=== PATIENT | female | born 1945 | race Caucasian/White ===

== ENCOUNTER 2016-08-23 19:33 | Emergency (ER) | payer OTHER ==
[2016-08-23 20:18] LABS: MANUAL DIFF NEEDED? NO
[2016-08-23 20:22] LABS: BASO% 0.3 % (0.0-0.8); EOS# 0.16 X1000 (0.0-0.7); EOS% 2.6 % (0.0-10.0); HEMATOCRIT 39.4 % (37.0-47.0); HEMOGLOBIN 13.2 g/dL (12.0-16.0); IMM GRAN# 0.02 X1000 (0.0-0.04); IMM GRAN% 0.3 % (0.0-0.5); LYMPH# 1.65 X1000 (1.2-3.4); LYMPH% 27.1 % (20.5-51.1); MCH 30.1 PG (27-31); MCHC 33.5 g/dL (33-37); MONO# 0.49 X1000 (0.11-0.59); MONO% 8.1 % (1.7-9.3); MPV 9.7 FL (7.4-10.4); NEUT% 61.6 % (42.2-75.2); PLT 169 X1000 (130-400); RBC 4.38 XMIL (4.2-5.4)
[2016-08-23 20:51] LABS: AGAP 11; ALBUMIN 3.8 g/dL (3.5-5.0); ALKALINE PHOSPHATASE 92 U/L (32-104); BUN 14 mg/dL (8-22); CALCIUM 8.9 mg/dL (8.8-10.2); CHLORIDE 99 mmol/L (98-107); COSMO 280; GOT 19 U/L (10-30); GPT 17 U/L (10-36); POTASSIUM 3.9 mmol/L (3.5-5.1); SODIUM 139 mmol/L (136-145); TCO2 29 mmol/L (25-35); TOTAL BILIRUBIN 0.46 mg/dL (0.20-1.00); TOTAL PROTEIN 6.5 g/dL (6.3-8.3)
[2016-08-23] MEDS ORDERED: ALBUTEROL NEB INH ONE (21:26)
[2016-08-23] MEDS ORDERED: DUONEB (A & A) INH ONE (21:26)
[2016-08-23] MEDS ORDERED: CATAPRES PO ONE (21:27)
[2016-08-23] MEDS ORDERED: DOXYCYCLINE PO ONE (21:27)
[2016-08-23] MEDS ORDERED: PREDNISONE PO ONE (21:27)
--- NOTE | 2016-08-23 21:55 | PROVIDER DOCUMENTATION ---
HPI-Respiratory General - General Chief Complaint: Cold Symptoms Stated Complaint: N/V/D Time Seen by Provider: 08/23/16 20:41 Source: patient Allergies/Adverse Reactions: Patient Allergies Allergy/AdvReac Type Severity Reaction Status Date / Time cefaclor [From Ceclor] Allergy Mild ITCHING Verified 01/05/15 18:53 hydrocodone bitartrate * Allergy Mild RASH Verified 01/05/15 18:53 [From Lortab] morphine Allergy ITCHING Verified 01/05/15 18:53 Home Medications: Aspirin 325 mg PO DAILY 02/05/13 Furosemide [Lasix] 80 mg PO DAILY 02/05/13 Metoprolol [Lopressor] 50 mg PO DAILY 02/05/13 Alprazolam [Xanax] 0.25 mg PO HS PRN PRN 03/17/14 Clopidogrel Bisulfate [Plavix] 75 mg PO QAM 03/17/14 Potassium Chloride 20 meq PO DAILY 01/05/15 Sertraline HCl 100 mg PO DAILY 01/05/15 - History of Present Illness-Resp Nature of Presenting Problem: 71 year old F presents to the ED with a cc of a runny nose, sore throat, cough, congestion, wheezing, and shortness of breath with an onset of 4 days ago. PT states that she took Musonex and her heart began racing. During triage blood pressure was elevated. Severity in ED: reports: mild Onset/Duration: reports: 4 days ago Timing: reports: still present Exposure: reports: unknown cause Cough Quality/Degree: reports: moderate Episode Frequency: no prior episodes Current Respiratory Medication Therapy: Initiated see nurses note Associated Symptoms: reports: cough Review of Systems - Adult - REVIEW OF SYSTEMS - ADULT Constitutional: denies: chills, fever Eyes: reports: no symptoms reported Ears, Nose, Mouth & Throat: reports: sinus problem, throat pain. denies: ear pain Cardiovascular: reports: no symptoms reported Respiratory: reports: cough, shortness of breath, wheezing Gastrointestinal: denies: abdominal pain, nausea, vomiting Genitourinary: denies: dysuria, hematuria Musculoskeletal: denies: bone pain, muscle aches, muscle weakness Integumentary: reports: no symptoms reported Neurological: reports: no symptoms reported Psychiatric: reports: no symptoms reported Endocrine: reports: no symptoms reported Hematologic/Lymphatic: reports: no symptoms reported Allergic/Immunologic: reports: no symptoms reported All Other Systems: Reviewed and Negative Past History - Adult - PAST MEDICAL HISTORY-ADULT Review of Records: reports: Nursing Assessment Review, Medications Reviewed Major Childhood Illnesses: reports: denies history Cardiovascular: reports: HTN, NE Neurological: reports: CVA - PRIOR SURGERIES/PROCEDURES Surgical/Procedure History: reports: appendectomy, CABG, cholecystectomy, cardiac stent, BTL, , joint replacement (total knee replacement), other (D & C) - PRIOR HOSPITALIZATIONS Prior Hospitalizations: reports: for similar symptoms - IMMUNIZATION STATUS Childhood Immunizations: UTD Flu Vaccine: UTD - FAMILY HISTORY Family History: reviewed, not pertinent - SOCIAL HISTORY Smoking: cigarettes, less than 1 pack/day Provider spent 3-5 mins advising pt. on dangers of tobacco.: Discussed manners to quit use, and f/u contacts for add'l counseling. Substance Use: none/never Alcohol Use Frequency: never Physical Exam-General - PHYSICAL EXAM-ADULT Initial Vital Signs Reviewed: Yes - CONSTITUTIONAL General Appearance: appears well, alert, no apparent distress - RESPIRATORY Respiratory: chest non-tender, lungs clear, normal breath sounds - CARDIOVASCULAR Cardiovascular: normal peripheral pulses, regular rate, rhythm, no edema - GASTROINTESTINAL (ABDOMEN) Abdominal Exam: non tender, soft - MUSCULOSKELETAL Extremity: normal inspection - SKIN Integumentary: normal color, normal turgor, warm/dry - PSYCHIATRIC Psych/Mental Status: normal mood/affect, normal thought content, normal thought process, oriented x 3 Progress - PLAN OF CARE/RESULTS Progress/Plan/Lab Results: plan of care: imaging, labs, medications Orders Category Date Time Status CHEST-2 VIEWS [RAD] Stat Exams 08/23/16 19:42 Taken CBC WITH DIFF [HEME] Stat Lab 08/23/16 20:05 Completed CMP [COMPREHENSIVE METABOLIC PANEL] [CHEM] Stat Lab 08/23/16 20:05 Completed Albuterol 2.5MG/Ipratrop 0.5MG [Duoneb (A & A)] Med 08/23/16 21:26 Discontinued 3 ml INH NOW ONE Albuterol [Albuterol Neb] Med 08/23/16 21:26 Discontinued 5 mg INH NOW ONE Clonidine [Catapres] Med 08/23/16 21:27 Discontinued 0.2 mg PO NOW ONE Doxycycline Med 08/23/16 21:27 Discontinued 100 mg PO NOW ONE Prednisone Med 08/23/16 21:27 Discontinued 60 mg PO NOW ONE Aerosol Treatments Routine Oth 08/23/16 21:26 Completed Aerosol Treatments Stat Oth 08/23/16 21:26 Completed Laboratory Tests 08/23/16 08/23/16 20:05 20:05 WBC 6.08 RBC 4.38 Hgb 13.2 Hct 39.4 MCV 90.0 MCH 30.1 MCHC 33.5 RDW Std Deviation 13.0 Plt Count 169 MPV 9.7 Immature Gran % (Auto) 0.3 Neut % (Auto) 61.6 Lymph % (Auto) 27.1 [place] % (Auto) 8.1 Eos % (Auto) 2.6 Baso % (Auto) 0.3 Immature Gran # (Auto) 0.02 Neut # (Auto) 3.74 Lymph # (Auto) 1.65 [place] # (Auto) 0.49 Eos # (Auto) 0.16 Baso # (Auto) 0.02 Sodium 139 Potassium 3.9 Chloride 99 Carbon Dioxide 29 Anion Gap 11 BUN 14 Creatinine 0.9 Estimated GFR/1.73 m2 > 60 BUN/Creatinine Ratio 16 Glucose 135 H Calculated Osmolality 280 Calcium 8.9 Total Bilirubin 0.46 AST 19 ALT 17 Alkaline Phosphatase 92 Total Protein 6.5 Albumin 3.8 Globulin 2.7 Albumin/Globulin Ratio 1.4 Vital Signs - 24 hr 08/23/16 08/23/16 19:40 22:12 Temperature 98.3 F Pulse Rate 64 66 Respiratory 12 18 Rate Blood Pressure 228/77 O2 Sat by Pulse 96 Oximetry Pt given results and will be d/c home w/ rx to follow up with PCP. Pt verbally understood instructions. PT remained clinically stable throughout the course of the ED stay and will return if symptoms worsen. - REASSESSMENT Reassessment #1 Time Reassessed: 22:45 (Wheezing has resolved and blood pressure is back to normal. PT will be d/c home to follow up with PCP.) Status: improving Departure - Departure Time of Disposition Order: 22:52 DIAGNOSIS: COPD exacerbation Hypertension Qualifiers: Hypertension type: essential hypertension Qualified Code(s): I10 - Essential ( primary) hypertension Disposition: HOME 01 Certified Medical Emergency: Emergent Condition: Good Additional Instructions: Follow up with primary care doctor. Return to ED for any new or worsening symptoms. ED Follow Up Instructions: You have been treated by a care provider in the Emergency Department. These instructions are being provided to you so you can have an understanding of how to care for yourself upon discharge. Upon discharge from the Emergency Department, you are responsible for making arrangements for follow-up care by a physician of your choice. Take all prescribed medications as directed. Return to the Emergency Department immediately for any new or worsening symptoms. You may call the Physician Referral phone number at [phone] to obtain a list of Physicians who are taking new patients. Prescriptions: Albuterol Sulfate [Albuterol Sulfate Hfa] 2 gm IH Q4-6H PRN PRN #1 [id number] PRN Reason: Wheezing Doxycycline 100 mg PO BID #14 tablet Prednisone 20 mg PO BID #10 tablet Referrals: Nima Pickens MD [Primary Care Provider] - Attestation - Scribe Verification/Attestation Scribe:: Margot Parisi Acting as Scribe for:: Jj Edwards Scribe documention review:: This chart was documented by a scribe and accurately reflects the service the provider performed and the decisions made by the provider. Physician Attestation - Physician Attestation I, the provider, attest to the following statement:: Jj Edwards Physician documentation Attestation:: This documentation recorded by the scribe accurately reflects the service I personally performed and the decisions made by me.
[2016-08-24 00:13] VITALS: BP 156/88
--- NOTE | 2016-08-24 08:19 | Diag Imaging Result Document ---
PROCEDURE NAME: CHEST-2 VIEWS - 08/23/2016 TWO VIEWS OF THE CHEST: FINDINGS: There is cardiomegaly. There is a granuloma over the right lower lobe. Compared to the previous study of 04/13/2016, there has been no significant change. IMPRESSION: Stable chest.
== END 2016-08-24 00:13 | disposition home or self-care (01) ==
LOC: ED 19:33
DX: J44.1 Chronic obstructive pulmonary disease with (acute) exacerbation (principal); I10 Essential (primary) hypertension; R06.2 Wheezing; J02.9 Acute pharyngitis, unspecified; R05 Cough; R06.02 Shortness of breath; I25.2 Old myocardial infarction; Z86.73 Personal history of transient ischemic attack (TIA), and cerebral infarction without residual deficits; Z79.899 Other long term (current) drug therapy; R09.89 Other specified symptoms and signs involving the circulatory and respiratory systems; Z96.659 Presence of unspecified artificial knee joint; Z95.5 Presence of coronary angioplasty implant and graft; Z95.1 Presence of aortocoronary bypass graft; Z79.82 Long term (current) use of aspirin; Z79.02 Long term (current) use of antithrombotics/antiplatelets; F17.210 Nicotine dependence, cigarettes, uncomplicated; Z71.6 Tobacco abuse counseling
CPT/HCPCS: 36415; 71020; 80053; 85025; 94640; 99284; J7512

== ENCOUNTER 2018-10-11 17:50 | Inpatient (IN) ==
[2018-10-11] MEDS ORDERED: SODIUM CHLORIDE 0.9% INJ ONE (18:30)
[2018-10-11] MEDS ORDERED: PROTONIX IV ONE (18:30)
[2018-10-11] MEDS ORDERED: DUONEB (A & A) INH ONE (18:30)
--- NOTE | 2018-10-11 18:41 | PROVIDER DOCUMENTATION ---
HPI-Respiratory General - General Stated Complaint: sob Time Seen by Provider: 10/11/18 18:21 Source: patient, EMS Allergies/Adverse Reactions: Patient Allergies Allergy/AdvReac Type Severity Reaction Status Date / Time levofloxacin [From Levaquin] Allergy Intermediate HIVES Verified 11/01/17 19:41 cefaclor [From Ceclor] Allergy Mild ITCHING Verified 11/01/17 19:41 codeine Allergy Mild RASH Verified 11/01/17 19:41 hydrocodone bitartrate * Allergy Mild RASH Verified 11/01/17 19:41 [From Lortab] latex Allergy Mild RASH Verified 11/01/17 19:41 meperidine [From Demerol] Allergy Mild ITCHING Verified 11/01/17 19:41 morphine Allergy Mild ITCHING Verified 11/01/17 19:41 ceftriaxone [From Rocephin] Allergy ITCHING Verified 04/11/18 19:16 Home Medications: Home Medication List Medication Instructions Recorded Confirmed Last Taken Type Sertraline HCl 100 mg PO QAM 01/05/15 07/18/18 04/09/18 History Pantoprazole [Protonix] 40 mg PO QAM 05/30/17 10/12/18 04/09/18 History ATORVAstatin [Lipitor] 40 mg PO QHS 07/31/17 10/12/18 04/09/18 History Isosorbide Mononitrate [Isosorbide 30 mg PO QAM 07/31/17 10/12/18 04/09/18 History Mononitrate ER] Acetaminophen E.r. [Tylenol 650 mg PO Q8HR PRN 11/01/17 10/12/18 04/09/18 History Arthritis] Potassium Chloride 20 meq PO DAILY 11/01/17 10/12/18 04/09/18 History Nitroglycerin [Nitrostat] 0.4 mg SL DIRECTED PRN 30 Days 01/04/18 10/12/18 Rx #30 tab.subl Alprazolam [Xanax] 0.25 mg PO BID PRN #60 tab 04/15/18 10/12/18 Unknown Rx Albuterol Sulfate [Ventolin Hfa] 2 puff IH Q4-6H PRN PRN 07/18/18 10/12/18 Unknown History Clonidine HCl 0.1 mg PO Q8H PRN 07/18/18 10/12/18 Unknown History Fluticasone/Umeclidin/Vilanter 1 each IH DAILY 07/18/18 10/12/18 Unknown History [Trelegy Ellipta 100-62.5-25] Furosemide [Lasix] 40 mg PO BID 07/18/18 10/12/18 Unknown History Diltiazem C.d. [Cardizem Cd] 240 mg PO DAILY #90 cap 07/26/18 10/12/18 Unknown Rx Dronedarone [Multaq] 400 mg PO BID #60 tab 07/26/18 10/12/18 Unknown Rx Nitrofurantoin [place]/Macrocryst 100 mg PO BID #20 cap 07/26/18 10/12/18 Unknown Rx [Macrobid] - History of Present Illness-Resp Nature of Presenting Problem: reports of sob since last night. associated with cough. worsening at night. mild swelling of legs. +epigastric pain since she did not eat last night. history of chf, copd. reports taking medicine everyday. no fever chills, cp, dysuria. home O2 3L, now requires 4L per EMS which oxygen improving to 94%. gave alb treatment which also improving. Review of Systems - Adult - REVIEW OF SYSTEMS - ADULT Constitutional: reports: see HPI Eyes: reports: no symptoms reported Ears, Nose, Mouth & Throat: reports: no symptoms reported Cardiovascular: reports: no symptoms reported Respiratory: reports: no symptoms reported Gastrointestinal: reports: no symptoms reported Genitourinary: reports: no symptoms reported Musculoskeletal: reports: no symptoms reported Integumentary: reports: no symptoms reported Neurological: reports: no symptoms reported Psychiatric: reports: no symptoms reported Endocrine: reports: no symptoms reported Hematologic/Lymphatic: reports: no symptoms reported Allergic/Immunologic: reports: no symptoms reported All Other Systems: Reviewed and Negative Past History - Adult - PAST MEDICAL HISTORY-ADULT Review of Records: reports: Old Records Reviewed, Nursing Assessment Review, Medications Reviewed, Social history reviewed & non-contributory. Major Childhood Illnesses: reports: denies history Cardiovascular: reports: cardiac disease, CHF, HTN, hyperlipidemia, OR, other ( stent) Respiratory: reports: COPD, sleep apnea Gastrointestinal: reports: GERD Obstetrical/Gynecological: reports: denies history Genitourinary: reports: denies history Musculoskeletal: reports: denies history Neurological: reports: CVA Psychiatric: reports: denies history Endocrine/Immune: reports: denies history Other Conditions: reports: denies history - PRIOR SURGERIES/PROCEDURES Surgical/Procedure History: reports: appendectomy, CABG, cholecystectomy, cardiac stent, BTL, , joint replacement (total knee replacement), other (D & C) - PRIOR HOSPITALIZATIONS Prior Hospitalizations: reports: for similar symptoms - IMMUNIZATION STATUS Childhood Immunizations: UTD Flu Vaccine: UTD - FAMILY HISTORY Family History: reviewed, not pertinent Physical Exam-General - CONSTITUTIONAL General Appearance: moderate distress, obese - EYES Eyes: PERRL/EOMI - HEAD, EARS, NOSE, MOUTH & THROAT HENMT: normocephalic/atraumatic, other (dry oral mucous membranes) - NECK Neck: non-tender, full range of motion - RESPIRATORY Respiratory: respiratory distress (mild to mod), decreased breath sounds, wheezing - CARDIOVASCULAR Cardiovascular: normal peripheral pulses, other (edema b/l) - GASTROINTESTINAL (ABDOMEN) Abdominal Exam: normal bowel sounds, tenderness (epigastric) - MUSCULOSKELETAL Back Exam: normal inspection, no CVA tenderness, no vertebral tenderness Extremity: normal range of motion, non-tender Peripheral Pulses: radial (R): 2+, radial (L): 2+, dorsalis-pedis (R): 2+, dorsalis-pedis (L): 2+ - SKIN Integumentary: normal color, warm/dry - NEUROLOGIC Neurologic: grossly normal - PSYCHIATRIC Psych/Mental Status: oriented x 3 - HEART Score HEART Score: History: Slightly Suspicious HEART Score: ECG: Non-Specific Repolarization Disturbance/LBBB/PM HEART Score: Age: > or = 65 Years HEART Score: Risk Factors for Atherosclerotic Disease: 1 or 2 Risk Factors HEART Score: Troponin: < or = Normal Limit Total HEART Score:: 4 Progress - PLAN OF CARE/RESULTS Progress/Plan/Lab Results: Laboratory Results - last 24 hr 10/11/18 10/11/18 10/11/18 00:15 18:43 18:43 WBC 7.07 RBC 4.38 Hgb 12.6 Hct 39.3 MCV 89.7 MCH 28.8 MCHC 32.1 L RDW Std Deviation 13.9 Plt Count 155 MPV 10.3 Immature Gran % (Auto) 0.3 Neut % (Auto) 74.6 Lymph % (Auto) 16.4 L [place] % (Auto) 6.6 Eos % (Auto) 1.7 Baso % (Auto) 0.4 Immature Gran # (Auto) 0.02 Neut # (Auto) 5.27 Lymph # (Auto) 1.16 L [place] # (Auto) 0.47 Eos # (Auto) 0.12 Baso # (Auto) 0.03 PT INR PTT (Actin FS) Specimen Type Sample Site pH pCO2 pO2 HCO3 Base Excess Oxyhemoglobin ABG O2 Sat (Calculated) ABG O2 Saturation ABG Carboxyhemoglobin ABG Methemoglobin Davis Test A-a O2 Difference Total Hemoglobin Lactate Liter Flow Blood Gas Modality FiO2 % Sodium 141 Potassium 4.4 Chloride 100 Carbon Dioxide 30 Anion Gap 11 BUN 22 Creatinine 1.2 H Estimated GFR/1.73 m2 44 BUN/Creatinine Ratio 18 Glucose 175 H Calculated Osmolality 289 Calcium 9.4 Total Bilirubin 0.55 AST 18 ALT 15 Alkaline Phosphatase 111 H Creatine Kinase 128 Troponin T 0.055 Yvm-I-Vdplvpsyquf Pept Total Protein 6.8 Albumin 4.4 Globulin 2.4 Albumin/Globulin Ratio 1.8 10/11/18 10/11/18 10/11/18 18:43 18:43 18:43 WBC RBC Hgb Hct MCV MCH MCHC RDW Std Deviation Plt Count MPV Immature Gran % (Auto) Neut % (Auto) Lymph % (Auto) [place] % (Auto) Eos % (Auto) Baso % (Auto) Immature Gran # (Auto) Neut # (Auto) Lymph # (Auto) [place] # (Auto) Eos # (Auto) Baso # (Auto) PT 13.4 INR 0.94 PTT (Actin FS) 28.9 Specimen Type Sample Site pH pCO2 pO2 HCO3 Base Excess Oxyhemoglobin ABG O2 Sat (Calculated) ABG O2 Saturation ABG Carboxyhemoglobin ABG Methemoglobin Davis Test A-a O2 Difference Total Hemoglobin Lactate Liter Flow Blood Gas Modality FiO2 % Sodium Potassium Chloride Carbon Dioxide Anion Gap BUN Creatinine Estimated GFR/1.73 m2 BUN/Creatinine Ratio Glucose Calculated Osmolality Calcium Total Bilirubin AST ALT Alkaline Phosphatase Creatine Kinase Troponin T 0.055 [id number]-J-Rrnqmpjaxeu Pept 2937 H Total Protein Albumin Globulin Albumin/Globulin Ratio 10/11/18 19:23 WBC RBC Hgb Hct MCV MCH MCHC RDW Std Deviation Plt Count MPV Immature Gran % (Auto) Neut % (Auto) Lymph % (Auto) [place] % (Auto) Eos % (Auto) Baso % (Auto) Immature Gran # (Auto) Neut # (Auto) Lymph # (Auto) [place] # (Auto) Eos # (Auto) Baso # (Auto) PT INR PTT (Actin FS) Specimen Type ARTERIAL Sample Site R RADIAL pH 7.43 pCO2 47 H pO2 84 HCO3 29.5 H Base Excess 5.9 H Oxyhemoglobin 95.1 ABG O2 Sat (Calculated) 16.7 ABG O2 Saturation 97.5 ABG Carboxyhemoglobin 1.40 ABG Methemoglobin 1.1 Davis Test YES A-a O2 Difference 114.0 Total Hemoglobin 12.4 Lactate 1.10 Liter Flow 4.0 Blood Gas Modality CANNULA FiO2 % 36.0 Sodium Potassium Chloride Carbon Dioxide Anion Gap BUN Creatinine Estimated GFR/1.73 m2 BUN/Creatinine Ratio Glucose Calculated Osmolality Calcium Total Bilirubin AST ALT Alkaline Phosphatase Creatine Kinase Troponin T Gvi-R-Nhvtbstvtyq Pept Total Protein Albumin Globulin Albumin/Globulin Ratio Orders Category Date Time Status Admit - [facility] Routine AdmDCTranf 10/11/18 22:36 Active Activity - Up with Assistance ORDERED Care 10/11/18 22:36 Active Cardiac Monitoring DIRECTED Care 10/11/18 18:30 Completed FSBS/Accucheck Result AC + HS Care 10/11/18 22:36 Active Intake and Output-Strict ORDERED Care 10/11/18 22:36 Active Oxygen Therapy- ED Nursing DIRECTED Care 10/11/18 18:30 Completed Saline Loc NOW Care 10/11/18 18:30 Completed Vital Signs Order Q 8-HR ASSESS Care 10/11/18 22:36 Active Z-Document. for Tele Applied ORDERED Care 10/11/18 22:36 Active Diabetic Diet Diet 10/11/18 22:37 Active CHEST-2 VIEWS [RAD] Routine Exams 10/13/18 06:00 Ordered CHEST-2 VIEWS [RAD] Stat Exams 10/11/18 18:30 Completed ABG [RESP] Routine Lab 10/11/18 19:23 Completed BASIC METABOLIC PANEL [CHEM] Routine Lab 10/12/18 04:39 Completed CBC WITH DIFF [HEME] Routine Lab 10/12/18 04:39 Completed CBC WITH ELECTRONIC DIFF [HEME] Stat Lab 10/11/18 18:43 Completed CK PROFILE [SP CHEM] Stat Lab 10/11/18 18:43 Completed COMPREHENSIVE METABOLIC PANEL [CHEM] Stat Lab 10/11/18 18:43 Completed PRO B-NATRIURETIC PEPTIDE Stat Lab 10/11/18 18:43 Completed PROTIME WITH INR [COAG] Stat Lab 10/11/18 18:43 Completed PTT [COAG] Stat Lab 10/11/18 18:43 Completed TROPONIN T Q6H Lab 10/11/18 00:15 Completed TROPONIN T Q6H Lab 10/12/18 04:39 Completed TROPONIN T Stat Lab 10/11/18 18:43 Completed TSH Routine Lab 10/12/18 04:39 Completed Acetaminophen [Tylenol] Med 10/11/18 22:36 Active 650 mg PO Q6H PRN PRN Albuterol 2.5MG/Ipratrop 0.5MG [Duoneb (A & A)] Med 10/11/18 18:30 Discontinued 3 ml INH NOW ONE Albuterol 2.5MG/Ipratrop 0.5MG [Duoneb (A & A)] Med 10/12/18 04:00 Active 3 ml INH RTQ6H Arformoterol Neb [Brovana Neb] Med 10/12/18 07:30 Active 15 microgm INH RTBID Enoxaparin [Lovenox] Med 10/11/18 22:36 Active 40 mg SUBQ Q24H Furosemide [Lasix] Med 10/12/18 03:30 Active 40 mg IV Q8H Furosemide [Lasix] Med 10/11/18 19:40 Discontinued 80 mg IV NOW ONE Insulin Lispro [Humalog] Med 10/11/18 22:36 Active See Protocol SUBQ 0700,1100,1600,2100 Methylprednisolone Sod Succ [Solu-Medrol] Med 10/11/18 22:36 Active 20 mg IV Q12H Ondansetron [Zofran] Med 10/11/18 22:36 Active 4 mg IV Q4H PRN PRN Pantoprazole [Protonix] Med 10/11/18 18:30 Discontinued 40 mg IV NOW ONE Sodium Chloride 0.9% Med 10/11/18 18:30 Discontinued 10 ml INJ NOW ONE Aerosol Treatments Routine Oth 10/11/18 18:30 Completed Aerosol Treatments Routine Oth 10/11/18 22:36 Completed Aerosol Treatments Stat Oth 10/11/18 18:30 Completed Aerosol Treatments Stat Oth 10/11/18 22:36 Completed Telemetry [OM.EQ] Routine Oth 10/11/18 22:36 Active Transfer/Admit Order [TRANSFER] Routine Transfer 10/11/18 20:36 Completed [facility] [address], [address], [place] [address] Department of Imaging Patient: LALY MADISON ADM Date: 10/11/18 MR#: [id number] : 1945 ADM Status: PRE ER Age/Sex: 73/F Room/Bed: Loc: ED Ordering Physician: Vandana Arambula MD Family Physician: Nima Pickens MD Reason for Procedure: copd, chf ___ Signed EXAM: CHEST-2 VIEWS - 10/11/2018 HISTORY: copd, chf TECHNIQUE: Chest two views COMPARISON: 07/24/2018 one view chest FINDINGS: There is cardiomegaly. There is mild prominence of central vascular markings. There is no consolidation, pleural effusion, or pneumothorax identified. There is thoracic spondylosis and or ankylosis noted. IMPRESSION: Cardiomegaly. Mild prominence of central vascular markings. Electronically signed by Ector Valera 10/11/2018 7:27 PM 10/11/181926 Interpreting Physician: Ector Valera MD Dictated Date/Time: 10/11/181925 cc: Vandana Arambula MD; Nima Pickens MD Result Diagrams: 10/12/18 04:39 10/12/18 04:39 - CONSULTS/PCP/HOSPITALIST Notification #1 *Consult/PCP/Hospitalist*: dR. FLORES Time Discussed: 20:30 (ACUTE COPD, CHF, CONSTANTINE, STASIS DERMATITIS) Consult Disposition: Admit Departure - Departure Date of Disposition Decision: 10/11/18 Time of Disposition Decision: 20:50 DIAGNOSIS: COPD (chronic obstructive pulmonary disease), CHF (congestive heart failure), CONSTANTINE (acute kidney injury), Stasis dermatitis of both legs Disposition: ADMITTED INPATIENT 09 Certified Medical Emergency: Emergent Condition: Stable - Critical Care Note This patient required my direct & personal management of CC.: No Attestation - Physician/ SADIA Attestation The physician spent face to face time with patient:: Yes Advanced Practice Provider documentation review:: Supervising physician onsite and consulted in the evaluation and care of this patient. The physician did have a face to face encounter with the patient.
[2018-10-11 19:00] LABS: BASO# 0.03 X1000 (0.0-0.2); BASO% 0.4 % (0.0-0.8); EOS# 0.12 X1000 (0.0-0.7); EOS% 1.7 % (0.0-10.0); HEMATOCRIT 39.3 % (37.0-47.0); HEMOGLOBIN 12.6 g/dL (12.0-16.0); IMM GRAN# 0.02 X1000 (0.0-0.04); IMM GRAN% 0.3 % (0.0-0.5); LYMPH# 1.16 X1000 (1.2-3.4); LYMPH% 16.4 % (20.5-51.1); MCH 28.8 PG (27-31); MCHC 32.1 g/dL (33-37); MCV 89.7 FL (81-99); MONO# 0.47 X1000 (0.11-0.59); MONO% 6.6 % (1.7-9.3); MPV 10.3 FL (7.4-10.4); NEUT# 5.27 X1000 (1.4-6.5); NEUT% 74.6 % (42.2-75.2); PLT 155 X1000 (130-400); RBC 4.38 XMIL (4.2-5.4); RDW 13.9 % (11.5-14.5); WBC 7.07 X1000 (4.8-10.8)
[2018-10-11 19:06] LABS: INR 0.94; PROTIME 13.4 Seconds (11.0-16.0)
[2018-10-11 19:07] LABS: PTT 28.9 Seconds (22.3-41.8)
[2018-10-11 19:17] LABS: ALB/GLOB RATIO 1.8; ALBUMIN 4.4 g/dL (3.5-5.0); CALCIUM 9.4 mg/dL (8.8-10.2); CREATININE 1.2 mg/dL (0.5-0.9); POTASSIUM 4.4 mmol/L (3.5-5.1); TOTAL BILIRUBIN 0.55 mg/dL (0.20-1.00); TOTAL PROTEIN 6.8 g/dL (6.3-8.3)
--- NOTE | 2018-10-11 19:29 | Diag Imaging Result Doc PS360 ---
EXAM: CHEST-2 VIEWS - 10/11/2018 HISTORY: copd, chf TECHNIQUE: Chest two views COMPARISON: 07/24/2018 one view chest FINDINGS: There is cardiomegaly. There is mild prominence of central vascular markings. There is no consolidation, pleural effusion, or pneumothorax identified. There is thoracic spondylosis and or ankylosis noted. IMPRESSION: Cardiomegaly. Mild prominence of central vascular markings. Electronically signed by Ector Valera 10/11/2018 7:27 PM
[2018-10-11 19:32] LABS: ALLEN TEST YES; BE 5.9 mmoll (-3.0-3.0); BLOOD TYPE ARTERIAL; HCO3-(ACT) 29.5 mmoll (20.0-26.0); METHB 1.1 % (0.0-1.5); O2(CT) 16.7 mL/dL (15.0-23.0); O2HB 95.1 % (95.0-99.0); PCO2(98.6) 47 mmHg (35-45); PO2(98.6) 84 mmHg (60-100); SAMPLE BLOOD; SAO2 97.5 % (95.0-100.0); THB 12.4 g/dL (11.5-17.4); pH(98.6) 7.43 (7.35-7.45)
[2018-10-11 19:33] LABS: MODALITY CANNULA
[2018-10-11] MEDS ORDERED: LASIX IV ONE (19:40)
--- NOTE | 2018-10-11 21:33 | HISTORY AND PHYSICAL ---
REASON FOR ADMISSION: One week history of dyspnea. HISTORY OF PRESENT ILLNESS: Ms. Gala Coughlin is a 73-year-old lady with a past medical history of atrial flutter, coronary artery disease, type 2 diabetes, reflux disease, hyperlipidemia, hypertension and sleep apnea, morbid obesity. She comes in today complaining about a 3-week of productive yellowish cough which was stringy. This has been increasing in volume and frequency. One week later the patient started noticing increasing lower extremity swelling and easy satiety. Then one week later she started noticing increased dyspnea on exertion. Normally she can walk 100 feet with a walker and O2 but over the course of the last week her exercise has diminished to 25 feet. Over the last 2 days she has been having orthopnea and dyspnea at rest. She has been sleeping in her recliner for the last 2 days. Today things got really bad and she experienced an episode of PND. She admits to having chest heaviness which has been constant associated with left arm pain. Neither of these have responded to sublingual nitroglycerin. She denies any fever but has subjective chills. No palpitations or lightheadedness. No extremity redness or pain of new onset. No decline in her urinary output. No GI complaints. The patient's dyspnea is partially improved with 2 doses of albuterol. She has had to have her home O2 increased from 3 to 4 L to maintain her oxygen saturation greater than 90% since being in the ER. REVIEW OF SYSTEMS: A 12 point review of systems was done and positive findings per HPI. The patient did admit to having a dull frontal headache and her urine has changed and has become darker and has a peculiar odor to it. ALLERGIES: Quinolone, cephalosporins, hydrocodone, morphine, Demerol, codeine. FAMILY HISTORY: Notable for heart disease and COPD. SOCIAL HISTORY: She is . She does not smoke, drink or use drugs. She lives in a prison apartment. MEDICATIONS: Reconciled at this point in time. PAST SURGICAL HISTORY: Cholecystectomy, , right knee replacement, ORIF of femoral fracture, stent in LAD. LABORATORY DATA: White count 7000, hemoglobin 12 and hematocrit 39, platelets 155, no differential. BUN 22, creatinine 1.2, glucose 175. AST and ALT are normal. Alkaline phosphatase 411. Troponin 0.055, CK normal. Pro-BNP 2900, PT and PTT normal with pH of 7.43, PCO2 47, PO2 80 on 4 L. Chest film shows poor penetration but the patient appears to have increased vascular markings and blunting of the left costophrenic angle, borderline cardiomegaly. EKG not available for review at this point in time. PHYSICAL EXAMINATION: VITAL SIGNS: Respiratory 22, pulse 84, temperature 97.6. She is 94% on 4 L. GENERAL: A morbidly obese woman who is in mild to moderate respiratory distress, having slight difficulty completing sentences. She is a morbidly obese, elderly woman who is slightly anxious. She is alert and oriented to person, place and time. Normal mood and affect. HEENT: Head is normocephalic, atraumatic. Eyes: PERRL. EOMI. She is anicteric, not pale. ENT and oropharynx exam shows severe oropharyngeal crowding but no exudates or erythema. No sinus tenderness. NECK: Short and thick. I cannot appreciate any JVD. No bruits or thyromegaly visualized. CHEST: Poor inspiratory effort. Significantly decreased air entry in both lung gonzalez. Expiratory wheezes heard. CARDIOVASCULAR: First and second heart sounds are heard. No gallops or rubs. Rhythm is regular. ABDOMEN: Protuberant. Soft with right upper quadrant tenderness noted but no peritoneal signs. Bowel sounds are hypoactive. RECTAL: Exam deferred at this time. EXTREMITIES: Patient has chronic skin changes consistent with chronic venous insufficiency. She has 1+ pitting edema. Pulses distally in the lower extremities are diminished but symmetrical and regular compared to the ones in the upper extremities which have a carranza volume. NEUROLOGICAL: No focal deficits. No asterixis. No tremors. SKIN: Findings as per lower extremities. MUSCULOSKELETAL: Grossly normal. ASSESSMENT: 1. Acute on chronic respiratory failure secondary to chronic obstructive pulmonary disease exacerbation and acute diastolic heart failure. 2. Acute diastolic heart failure secondary to hypertensive heart disease. 3. Hypertensive heart disease. 4. Chronic obstructive pulmonary disease. 5. Obstructive sleep apnea. 6. Type 2 diabetes. 7. Coronary artery disease. 8. Hyperlipidemia. 9. Morbid obesity. PLAN: The patient will be admitted for aggressive diuresed, O2 supplementation, long and short- acting bronchodilators and modest doses of steroids. Defer to Dr. Pickens as per his preference as to whether he wants to consult Cardiology for this case. An echocardiogram would be recommended in this patient. The patient is not compliant with her diet and engages in drinking lots of sodas which can cause salt retention. I explained this to the patient. Her daughter says she is not really committed to changing her eating habits and the family concurs. DVT prophylaxis with Lovenox. Sliding scale will be initiated. If need be, based on her blood sugars, she can have long-acting insulin added on. Transfer the patient's care to Dr. Pickens in the morning. cc: MD Gregory Fan MD
[2018-10-11] MEDS ORDERED: TYLENOL PO PRN (22:36)
[2018-10-11] MEDS ORDERED: ZOFRAN IV PRN (22:36)
[2018-10-12] MEDS: SOLU-MEDROL IV SCH ×3 (00:09→22:52)
[2018-10-12] MEDS: LOVENOX SUBQ SCH ×2 (00:10→22:52)
[2018-10-12] MEDS: HUMALOG SUBQ SCH ×4 (00:10→17:30)
[2018-10-12] MEDS: DUONEB (A & A) INH SCH ×4 (03:45→20:30)
[2018-10-12] MEDS: LASIX IV SCH ×3 (04:23→20:15)
[2018-10-12 05:44] LABS: BASO# 0.02 X1000 (0.0-0.2); BASO% 0.3 % (0.0-0.8); EOS# 0.01 X1000 (0.0-0.7); EOS% 0.1 % (0.0-10.0); HEMATOCRIT 38.8 % (37.0-47.0); HEMOGLOBIN 12.5 g/dL (12.0-16.0); IMM GRAN# 0.03 X1000 (0.0-0.04); IMM GRAN% 0.4 % (0.0-0.5); LYMPH# 0.72 X1000 (1.2-3.4); LYMPH% 9.6 % (20.5-51.1); MCH 28.7 PG (27-31); MCHC 32.2 g/dL (33-37); MCV 89.2 FL (81-99); MONO# 0.15 X1000 (0.11-0.59); MPV 10.8 FL (7.4-10.4); NEUT# 6.58 X1000 (1.4-6.5); NEUT% 87.6 % (42.2-75.2); PLT 153 X1000 (130-400); RBC 4.35 XMIL (4.2-5.4); RDW 13.9 % (11.5-14.5); WBC 7.51 X1000 (4.8-10.8)
[2018-10-12 05:47] LABS: CALCIUM 9.5 mg/dL (8.8-10.2); CREATININE 1.2 mg/dL (0.5-0.9); POTASSIUM 4.2 mmol/L (3.5-5.1)
[2018-10-12] MEDS ORDERED: BROVANA NEB ONE (07:20)
[2018-10-12] MEDS: BROVANA NEB INH SCH ×2 (10:05→20:20)
[2018-10-12] MEDS: ULTRACET 37.5MG/325MG PO PRN ×2 (12:10→20:15)
[2018-10-12] MEDS ORDERED: APRESOLINE IV PRN (18:26)
--- NOTE | 2018-10-12 20:09 | PROGRESS NOTE ---
DATE: 10/12/2018 SUBJECT: 73-year-old white female admitted to the hospital basically with worsening of dyspnea last night. She is gaining weight. Swelling of face and legs. I did review the H and P on 10/11/2018. PAST MEDICAL HISTORY: Reviewed. PAST SURGICAL HISTORY: Reviewed. MEDICINES: Reviewed. ALLERGIES: Levaquin, codeine, hydrocodone. EXAMINATION: Temp is 98 degrees, pulse 94, blood pressure 193/88, 4 L nasal cannula 98%. 5 feet, 5 inches, 300 pounds. Patient is not using CPAP machine and generalized obesity. Poor air entry. Distant heart sounds. Belly is soft, obese, nontender. Chronic indurated edema in both legs and the scar is present in the right leg. No obvious deficits. INVESTIGATIONS: CBC: White cell count 7.48, hematocrit 38, platelets 153,000, PT/INR is normal. ABG: pH is 7.43, pCO2 47, PO2 84 on 36%. Sodium 140, potassium 4.2, chloride 98, BUN 21, creatinine 1.2, glucose 306, proBNP was slightly high. TSH is 4.34. Chest x-ray, cardiomegaly, mild prominence of pulmonary vasculature. ASSESSMENT AND PLAN: 1. Pickwickian syndrome with obesity hypoventilation. Continue CPAP. 2. Generalized anasarca. Continue IV Lasix. 3. PAF on Multaq 400 p.o. b.i.d. Currently in sinus. Unable to tolerate anticoagulation due to severe GI bleeding. 4. CAD with a stent in the LAD. 5. Acute decompensated diastolic heart failure due to hypertension. Continue control the blood pressure. 6. Stasis dermatitis in both legs. 7. Osteoarthritis of both knees. 8. Gastrointestinal bleeding due to diverticulosis on 07/18/2018. 9. Chronic L2 compression fracture, stable. 10. Acid reflux disease on IV Protonix. 11. Hyperlipidemia on Lipitor. 12. Chronic pain with Ultracet and reconcile home medications. Continue low-salt diet. Fluid restrictions. Continue monitor tech. LEVEL OF DOCUMENTATION: 35 minutes. cc: Gregory Pickens MD
[2018-10-12] MEDS: XANAX PO PRN (20:15)
[2018-10-12] MEDS: LIPITOR PO SCH (20:15)
[2018-10-12] MEDS: MULTAQ PO SCH (20:15)
[2018-10-12] MEDS: HUMULIN R SUBQ SCH (21:08)
[2018-10-12 22:18] LABS: ALLEN TEST YES; BE 8.9 mmoll (-3.0-3.0); BLOOD TYPE ARTERIAL; HCO3-(ACT) 31.8 mmoll (20.0-26.0); METHB 1.2 % (0.0-1.5); MODALITY CANNULA; O2(CT) 17.1 mL/dL (15.0-23.0); O2HB 95.3 % (95.0-99.0); PCO2(98.6) 48 mmHg (35-45); PO2(98.6) 79 mmHg (60-100); SAMPLE BLOOD; SAO2 97.7 % (95.0-100.0); THB 12.7 g/dL (11.5-17.4); pH(98.6) 7.46 (7.35-7.45)
[2018-10-12] MEDS ORDERED: XANAX PO ONE (22:44)
[2018-10-13] MEDS: LASIX IV SCH ×2 (02:44→16:05)
[2018-10-13] MEDS: DUONEB (A & A) INH SCH ×4 (03:40→21:00)
[2018-10-13] MEDS: HUMULIN R SUBQ SCH ×4 (06:04→20:48)
[2018-10-13] MEDS: BROVANA NEB INH SCH ×2 (07:52→21:00)
[2018-10-13] MEDS: PROTONIX PO SCH (08:07)
[2018-10-13] MEDS: CARDIZEM CD PO SCH (08:07)
[2018-10-13] MEDS: IMDUR PO SCH (08:07)
[2018-10-13] MEDS: MULTAQ PO SCH ×2 (08:07→20:47)
[2018-10-13] MEDS: POTASSIUM CHLORIDE 10% LIQUID PO SCH (08:07)
--- NOTE | 2018-10-13 08:58 | Diag Imaging Result Doc PS360 ---
EXAM: CHEST-2 VIEWS INDICATION: CHF TECHNIQUE: 2 views COMPARISON: 10/11/2018 FINDINGS: Inspiration is suboptimal. There mild pulmonary venous congestion that may have improved marginally during the interval. No new consolidation is identified. Cardiac silhouette is stable. IMPRESSION: Slight improvement of mild pulmonary venous congestion. Stable chest, otherwise. Electronically signed by Rajesh King 10/13/2018 8:56 AM
[2018-10-13] MEDS ORDERED: TYLENOL ARTHRITIS PO PRN (09:24)
[2018-10-13] MEDS ORDERED: NITROGLYCERIN SL PRN (09:24)
[2018-10-13] MEDS: SOLU-MEDROL IV SCH (09:56)
[2018-10-13] MEDS: ZOLOFT PO SCH (09:56)
[2018-10-13] MEDS: METAMUCIL PO SCH (09:56)
[2018-10-13] MEDS: VASOTEC PO SCH ×2 (11:04→20:47)
--- NOTE | 2018-10-13 11:17 | PROGRESS NOTE ---
DATE: 10/13/2018 SUBJECTIVE: The patient had some anxiety last evening, but overall is fairly stable. She is eating her breakfast this morning. OBJECTIVE: Vital Signs: Afebrile. Pulse 89, respirations 16, and blood pressure 170/83. O2 saturation on nasal cannula 93%. CV: RRR. Lungs: CTA. Distant breath sounds. Abdomen: Protuberant, nontender, and nondistended. Morbid obesity. Extremities: Lower extremities 2 to 3+ edema fairly hard, nonpitting with some small blister lesions diffusely and circumferentially below the knees, over the feet and legs chronic. She says actually her legs are down some from what she usually runs. Neurologic: Nonfocal. Morbid obesity. Prominent. I Os show 1140 in and 3150 out. LABORATORY DATA: Lab data from yesterday reviewed showing creatinine 1.2. Normal potassium. White count 7.5, hemoglobin 12.5, and platelets 153,000. Chest x-ray today shows some improvement in the pulmonary vascular congestion. Otherwise stable with cardiomegaly. ASSESSMENT: 1. Pickwickian syndrome with morbid obesity and hypoventilation on CPAP at night. 2. Anasarca. 3. Paroxysmal atrial fibrillation on Multaq and Cardizem CD. 4. Coronary artery disease. 5. CHF. 6. Hypertension. 7. Venous stasis dermatitis lower extremities. 8. History of diverticulosis and diverticular bleed rendering her unable to take anticoagulation. 9. Osteoarthritis of the knees. 10. Chronic L2 compression fracture. 11. Gastroesophageal reflux disease. 12. Hyperlipidemia on Lipitor. 13. Chronic pain. PLAN: Resume the IV Lasix. Continue I Os. Add low-dose SCOOBY inhibitor. Continue Imdur, Cardizem CD, Multaq. Continue to monitor I Os. She is on steroids, DuoNeb's, and will resume her home triple MDI. Continue CPAP at night. O2 per nasal cannula during the day. We will try to tighten the control of her blood pressure so as to improve her situation. cc: MD Gregory Benoit MD
[2018-10-13] MEDS: NON-FORMULARY BULK MED INH SCH (15:22)
[2018-10-13] MEDS: XANAX PO PRN (20:46)
[2018-10-13] MEDS: LIPITOR PO SCH (20:47)
[2018-10-13] MEDS: MIRALAX PO SCH (20:49)
[2018-10-13] MEDS ORDERED: LASIX PO SCH (21:00)
[2018-10-14] MEDS: LOVENOX SUBQ SCH ×3 (01:52→21:58)
[2018-10-14] MEDS: DUONEB (A & A) INH SCH ×4 (04:02→21:24)
[2018-10-14] MEDS: LASIX IV SCH ×2 (04:51→14:40)
[2018-10-14 07:17] LABS: BASO# 0.02 X1000 (0.0-0.2); BASO% 0.2 % (0.0-0.8); EOS# 0.02 X1000 (0.0-0.7); EOS% 0.2 % (0.0-10.0); HEMATOCRIT 41.5 % (37.0-47.0); HEMOGLOBIN 13.2 g/dL (12.0-16.0); IMM GRAN# 0.05 X1000 (0.0-0.04); IMM GRAN% 0.4 % (0.0-0.5); LYMPH% 17.2 % (20.5-51.1); MCHC 31.8 g/dL (33-37); MCV 91.2 FL (81-99); MONO# 0.91 X1000 (0.11-0.59); MONO% 7.5 % (1.7-9.3); MPV 10.6 FL (7.4-10.4); NEUT# 9.11 X1000 (1.4-6.5); NEUT% 74.5 % (42.2-75.2); PLT 198 X1000 (130-400); RBC 4.55 XMIL (4.2-5.4); RDW 14.4 % (11.5-14.5); WBC 12.21 X1000 (4.8-10.8)
[2018-10-14] MEDS: HUMULIN R SUBQ SCH ×4 (07:37→21:57)
[2018-10-14 07:43] LABS: CALCIUM 9.8 mg/dL (8.8-10.2); CREATININE 1.4 mg/dL (0.5-0.9); POTASSIUM 3.9 mmol/L (3.5-5.1)
[2018-10-14] MEDS: VASOTEC PO SCH ×2 (09:59→20:36)
[2018-10-14] MEDS: METAMUCIL PO SCH (09:59)
[2018-10-14] MEDS: ZOLOFT PO SCH (09:59)
[2018-10-14] MEDS: MULTAQ PO SCH ×2 (09:59→20:37)
[2018-10-14] MEDS: PROTONIX PO SCH (09:59)
[2018-10-14] MEDS: CARDIZEM CD PO SCH (09:59)
[2018-10-14] MEDS: IMDUR PO SCH (09:59)
[2018-10-14] MEDS: POTASSIUM CHLORIDE 10% LIQUID PO SCH (10:00)
[2018-10-14] MEDS: NON-FORMULARY BULK MED INH SCH (10:01)
--- NOTE | 2018-10-14 11:14 | PROGRESS NOTE ---
DATE: 10/14/2018 SUBJECTIVE: The patient says she did sleep during the night, but was less fidgety and restless. She has been feeling better overall. WEIGHT: 298. INPUT AND OUTPUT: 600 in, 1600 out. She is eating 50% of her meals and is having bowel movements regularly. Currently on the bedside commode. OBJECTIVE: Vitals: Afebrile. Pulse 68, respirations 22, blood pressure 158/76. O2 saturation on room air 100%. Cardiovascular: Regular rate and rhythm. Lungs: Distant breath sounds. Clear. Morbid obesity. Extremities: Very large and still with nonpitting edema 2-3+. Neurologic: Nonfocal. Cranial nerves intact. LABORATORIES: White count 12.2 on IV steroids, hemoglobin 13.2, platelets 198. Sodium 141, potassium 3.9, chloride 96, CO2 31, BUN 43, creatinine 1.4, blood sugars mid 200s. ASSESSMENT: 1. Pickwickian syndrome with morbid obesity and hypoventilation, on CPAP nightly. 2. Anasarca, somewhat improving with negative fluid balance. 3. Paroxysmal atrial fibrillation on Multaq and Cardizem CD and not on anticoagulation due to prior intestinal bleeds. 4. Coronary artery disease. 5. Congestive heart failure. 6. Hypertension. 7. Venous stasis dermatitis, lower extremities. 8. Osteoarthritis knees. 9. History of diverticular bleeds and diverticulosis. 10. Chronic L2 compression fracture. 11. Gastroesophageal reflux disease. 12. Hyperlipidemia, on Lipitor. 13. Chronic pain. PLAN: Continue IV Lasix. Continue low-dose enalapril. She remains on her home Imdur, Cardizem CD, Multaq. She is on steroids DuoNebs and triple metered dose inhalers. She continues on her oxygen per nasal cannula during the day and CPAP at night. Overall seeing slow gradual improvement. Continue same. cc: MD Gregory Benoit MD
[2018-10-14] MEDS: XANAX PO PRN (14:42)
[2018-10-14] MEDS: BROVANA NEB INH SCH ×2 (15:11→19:30)
[2018-10-14] MEDS: LIPITOR PO SCH (20:37)
[2018-10-14] MEDS: MIRALAX PO SCH (20:37)
[2018-10-15] MEDS: DUONEB (A & A) INH SCH ×4 (03:17→22:55)
[2018-10-15] MEDS: LASIX IV SCH ×2 (04:22→16:00)
[2018-10-15] MEDS: HUMULIN R SUBQ SCH ×5 (05:41→20:40)
[2018-10-15] MEDS: NON-FORMULARY BULK MED INH SCH (07:01)
[2018-10-15] MEDS ORDERED: BROVANA NEB ONE (07:34)
--- NOTE | 2018-10-15 07:38 | Diag Imaging Result Doc PS360 ---
EXAM: CHEST-2 VIEWS 10/15/2018 HISTORY: hypoxia TECHNIQUE: AP upright and lateral chest sitting COMMENT: Compared to the previous study of 10/13/2018 there has been no significant change considering differences in technique. IMPRESSION: Stable chest. Electronically signed by Nakul Drummond 10/15/2018 7:36 AM
[2018-10-15 07:53] LABS: BASO# 0.03 X1000 (0.0-0.2); BASO% 0.5 % (0.0-0.8); EOS# 0.21 X1000 (0.0-0.7); EOS% 3.2 % (0.0-10.0); HEMATOCRIT 35.7 % (37.0-47.0); HEMOGLOBIN 11.2 g/dL (12.0-16.0); IMM GRAN# 0.03 X1000 (0.0-0.04); IMM GRAN% 0.5 % (0.0-0.5); LYMPH# 1.93 X1000 (1.2-3.4); LYMPH% 29.1 % (20.5-51.1); MCH 28.9 PG (27-31); MCHC 31.4 g/dL (33-37); MCV 92.2 FL (81-99); MONO# 0.63 X1000 (0.11-0.59); MONO% 9.5 % (1.7-9.3); MPV 11.1 FL (7.4-10.4); NEUT% 57.2 % (42.2-75.2); PLT 159 X1000 (130-400); RBC 3.87 XMIL (4.2-5.4); RDW 14.3 % (11.5-14.5); WBC 6.63 X1000 (4.8-10.8)
[2018-10-15] MEDS: BROVANA NEB INH SCH ×2 (07:57→22:55)
[2018-10-15 07:58] LABS: CALCIUM 8.9 mg/dL (8.8-10.2); CREATININE 1.5 mg/dL (0.5-0.9); POTASSIUM 4.1 mmol/L (3.5-5.1)
[2018-10-15] MEDS: VASOTEC PO SCH ×3 (09:32→20:41)
[2018-10-15] MEDS: IMDUR PO SCH (09:32)
[2018-10-15] MEDS: METAMUCIL PO SCH (09:32)
[2018-10-15] MEDS: CARDIZEM CD PO SCH (09:32)
[2018-10-15] MEDS: ZOLOFT PO SCH (09:32)
[2018-10-15] MEDS: POTASSIUM CHLORIDE 10% LIQUID PO SCH (09:32)
[2018-10-15] MEDS: MULTAQ PO SCH ×3 (09:32→20:41)
[2018-10-15] MEDS: PROTONIX PO SCH (09:32)
[2018-10-15] MEDS: MIRALAX PO SCH ×2 (19:51→20:41)
[2018-10-15] MEDS: LIPITOR PO SCH ×2 (19:52→20:41)
[2018-10-15] MEDS: LOVENOX SUBQ SCH ×2 (19:52→20:41)
--- NOTE | 2018-10-15 21:16 | PROGRESS NOTE ---
DATE: 10/15/2018 SUBJECTIVE: Events noted over the weekend. Patient has excellent diuresis. She is not using CPAP machine. This morning, she was receiving bronchodilator treatment and she has hypersomnia and snoring. REVIEW OF SYSTEMS: None reported. EXAMINATION: Vital Signs: Temp is 98.0, pulse is 75, blood pressure is 131/54. I's and O's negative, about 3 L so far. Weight was 297 pounds, morbidly obese. Suboptimal exam. Lungs: Poor air entry. Extremities: Chronic indurated edema in both legs. INVESTIGATIONS: CBC: White cell count 6.3, hematocrit 35.7, platelets 159,000. ABG: pH is 7.46, pCO2 48, PO2 79. SMA-7: Sodium 140, potassium 4.1, BUN 44, creatinine 1.5, glucose 164. ASSESSMENT AND PLAN: 1. Paroxysmal atrial fibrillation, currently in sinus. Not able to take anticoagulation due to GI bleeding on Multaq. 2. Diastolic heart failure. Continue on Cardizem 240 daily, IV Lasix 40 q.12. 3. Mild azotemia, stable. 4. Obstructive sleep apnea. On CPAP machine. 5. Chronic anxiety, on Xanax. 6. DVT prophylaxis with Lovenox. 7. Diabetes. Continue on insulin protocol. 8. Hyperlipidemia, on Lipitor. 9. CAD with a stent, stable. 10. GI prophylaxis with p.o. Protonix. 11. Constipation, on MiraLAX. 12. Reactive depression, on Zoloft. 13. Continue daily weights, fluid restrictions, CPAP machine. Will follow up. LEVEL OF DOCUMENTATION: 25 minutes. cc: Gregory Pickens MD
[2018-10-16] MEDS: DUONEB (A & A) INH SCH ×4 (03:44→22:00)
[2018-10-16] MEDS: HUMULIN R SUBQ SCH ×4 (06:08→22:46)
[2018-10-16] MEDS: LASIX IV SCH ×2 (06:08→16:47)
[2018-10-16] MEDS ORDERED: BROVANA NEB ONE ×2 (07:09)
[2018-10-16] MEDS: CARDIZEM CD PO SCH (08:54)
[2018-10-16] MEDS: PROTONIX PO SCH (08:54)
[2018-10-16] MEDS: IMDUR PO SCH (08:54)
[2018-10-16] MEDS: VASOTEC PO SCH ×2 (08:54→22:43)
[2018-10-16] MEDS: METAMUCIL PO SCH (08:54)
[2018-10-16] MEDS: MULTAQ PO SCH ×2 (08:55→22:43)
[2018-10-16] MEDS: ZOLOFT PO SCH (08:55)
[2018-10-16] MEDS: POTASSIUM CHLORIDE 10% LIQUID PO SCH (08:55)
[2018-10-16] MEDS: NON-FORMULARY BULK MED INH SCH (09:46)
[2018-10-16] MEDS: BROVANA NEB INH SCH ×2 (09:46→22:00)
--- NOTE | 2018-10-16 19:51 | PROGRESS NOTE ---
DATE: 10/16/2018 SUBJECTIVE: The patient is peeing well, lost 3 pounds, and not using CPAP machine. Obese. REVIEW OF SYSTEMS: None reported. OBJECTIVE: Temperature is 98 degrees, pulse is 69, blood pressure is stable. Weight 297 pounds. HEENT exam within normal limits. Neck is supple. No lymphadenopathy. Chest has bilateral air entry. Heart sounds are regular and distant. Belly is soft, nontender. Decreased edema. ASSESSMENT AND PLAN: 1. Acute decompensated congestive heart failure, diastolic dysfunction. Pickwickian syndrome. Continue intravenous Lasix. 2. Paroxysmal atrial fibrillation, in sinus. The patient is not a candidate for anticoagulation. 3. Obstructive sleep apnea, on continuous positive airway pressure machine. 4. Deep venous thrombosis prophylaxis with Lovenox. Continue intravenous diuresis. Will discuss with the family and will follow up. Level of documentation 25 minutes. cc: Gregory Pickens MD
[2018-10-16] MEDS: MIRALAX PO SCH (22:43)
[2018-10-16] MEDS: LIPITOR PO SCH (22:43)
[2018-10-16] MEDS: LOVENOX SUBQ SCH (22:44)
[2018-10-17] MEDS: ULTRACET 37.5MG/325MG PO PRN (00:10)
[2018-10-17] MEDS: DUONEB (A & A) INH SCH ×4 (03:15→21:15)
[2018-10-17] MEDS: LASIX IV SCH ×2 (05:47→17:28)
[2018-10-17] MEDS: HUMULIN R SUBQ SCH ×4 (06:07→20:09)
[2018-10-17] MEDS: POTASSIUM CHLORIDE 10% LIQUID PO SCH (09:24)
[2018-10-17] MEDS: ZOLOFT PO SCH (09:25)
[2018-10-17] MEDS: IMDUR PO SCH (09:25)
[2018-10-17] MEDS: VASOTEC PO SCH ×2 (09:25→20:09)
[2018-10-17] MEDS: METAMUCIL PO SCH (09:25)
[2018-10-17] MEDS: MULTAQ PO SCH ×2 (09:25→20:09)
[2018-10-17] MEDS: CARDIZEM CD PO SCH (09:25)
[2018-10-17] MEDS: PROTONIX PO SCH (09:25)
[2018-10-17] MEDS: NON-FORMULARY BULK MED INH SCH ×2 (10:42→10:43)
[2018-10-17] MEDS: BROVANA NEB INH SCH ×2 (10:43→21:15)
[2018-10-17] MEDS: LIPITOR PO SCH (20:09)
[2018-10-17] MEDS: MIRALAX PO SCH (20:09)
[2018-10-17] MEDS: LOVENOX SUBQ SCH (20:09)
--- NOTE | 2018-10-17 20:15 | PROGRESS NOTE ---
DATE: 10/17/2018 SUBJECTIVE: The patient does not have sleep because of the other roommate did not go to sleep. No complaints on diuresis on CPAP machine last night. EXAM: Vital Signs: Temperature is 98, pulse is 69, blood pressure is 138/67, weight is 296 pounds. HEENT: Within normal limits. Neck: Supple. Chest: Clear to auscultation. Heart: Sounds are regular. Abdomen: Belly is soft, nontender. Good bowel sounds. Extremities: Chronic induration of both legs. ASSESSMENT AND PLAN: 1. Acute shortness of breath due to diastolic heart failure with Pickwickian syndrome. Continue IV diuresis. 2. Sleep apnea on CPAP machine. 3. Paroxysmal atrial fibrillation in sinus rhythm. 4. No anticoagulation due to lower gastrointestinal bleeding. 5. Status post right knee replacement. 6. Hyperlipidemia on Lipitor. 7. Coronary artery disease stable. 8. Continue fluid restriction, daily weights. Continue IV Lasix and will discuss with the family. That is all I can do for this time being. Patient needs restriction of the fluid and salt. LEVEL OF DOCUMENTATION: 25 minutes. cc: Gregory Pickens MD
[2018-10-18] MEDS: DUONEB (A & A) INH SCH ×4 (06:38→21:35)
[2018-10-18] MEDS: HUMULIN R SUBQ SCH ×4 (06:50→20:34)
[2018-10-18] MEDS: LASIX IV SCH ×2 (06:52→17:04)
[2018-10-18] MEDS ORDERED: LASIX ONE (09:09)
[2018-10-18] MEDS: IMDUR PO SCH (09:16)
[2018-10-18] MEDS: CARDIZEM CD PO SCH (09:16)
[2018-10-18] MEDS: MULTAQ PO SCH ×2 (09:16→20:34)
[2018-10-18] MEDS: METAMUCIL PO SCH (09:16)
[2018-10-18] MEDS: VASOTEC PO SCH ×2 (09:16→20:34)
[2018-10-18] MEDS: PROTONIX PO SCH (09:16)
[2018-10-18] MEDS: POTASSIUM CHLORIDE 10% LIQUID PO SCH (09:16)
[2018-10-18] MEDS: ZOLOFT PO SCH (09:16)
[2018-10-18] MEDS: NON-FORMULARY BULK MED INH SCH (09:39)
[2018-10-18] MEDS: BROVANA NEB INH SCH ×2 (09:39→21:35)
--- NOTE | 2018-10-18 20:16 | PROGRESS NOTE ---
DATE: 10/18/2018 SUBJECTIVE: Patient is slowly better and no complaints. PHYSICAL EXAMINATION: Vital Signs: Temperature is 98 degrees, pulse is 77, blood pressure is 150/70, oxygen saturation 94%. Physical exam had no change. ASSESSMENT AND PLAN: Diastolic heart failure, stable. Continue on IV Lasix, fluid restriction, daily weights, and CPAP machine. Other problems are stable, and we will follow up, and if she is stable, we will discharge in the morning. LEVEL OF DOCUMENTATION: 15 minutes. cc: Gregory Pickens MD
[2018-10-18] MEDS: MIRALAX PO SCH (20:33)
[2018-10-18] MEDS: LOVENOX SUBQ SCH (20:34)
[2018-10-18] MEDS: LIPITOR PO SCH (20:34)
[2018-10-19] MEDS: DUONEB (A & A) INH SCH ×2 (03:45→09:03)
[2018-10-19] MEDS: HUMULIN R SUBQ SCH (06:37)
[2018-10-19] MEDS: LASIX IV SCH (06:37)
[2018-10-19] MEDS: VASOTEC PO SCH (08:14)
[2018-10-19] MEDS: MULTAQ PO SCH (08:14)
[2018-10-19] MEDS: POTASSIUM CHLORIDE 10% LIQUID PO SCH (08:14)
[2018-10-19] MEDS: METAMUCIL PO SCH (08:14)
[2018-10-19] MEDS: ZOLOFT PO SCH (08:14)
[2018-10-19] MEDS: PROTONIX PO SCH (08:14)
[2018-10-19] MEDS: CARDIZEM CD PO SCH (08:14)
[2018-10-19] MEDS: IMDUR PO SCH (08:14)
[2018-10-19 08:23] VITALS: BP 150/62
[2018-10-19] MEDS: BROVANA NEB INH SCH (09:03)
[2018-10-19] MEDS: NON-FORMULARY BULK MED INH SCH (09:03)
--- NOTE | 2018-10-20 15:22 | DISCHARGE SUMMARY ---
ADMISSION DATE: 10/11/2018 DISCHARGE DATE: 10/19/2018 DISCHARGING DIAGNOSIS: Acute diastolic heart failure with underlying Pickwickian syndrome. SECONDARY DIAGNOSIS: 1. Paroxysmal atrial fibrillation, stable. 2. Coronary artery disease with a stent in left anterior descending. 3. Cervical spondylosis, chronic L2 compression fracture stable. 4. Morbid obesity. Weight is 300 pounds. 5. Acid reflux disease. 6. Hyperlipidemia. 7. Hypertension. 8. Severe sleep apnea on CPAP machine. 9. Chronic stasis dermatitis in both legs. 10. Osteoarthritis in both knees. 11. History of gastrointestinal bleeding due to diverticulosis. BRIEF HISTORY: Please see the H and P was done by hospitalist. In brief she is a 73-year-old white female with above problems. Came in with shortness of breath, cough and wheezing, swelling of feet. She gain 15 pounds. She has known history of diastolic heart failure. HOSPITAL COURSE: She is not wearing oxygen. She has significant leg cramps and taking mustard. Patient was given IV Lasix with diuresis done. Patient is encouraged to use the CPAP machine all the time and try to lose some weight. Also requested fluid restrictions and daily weights and low-salt diet. Rest of the hospital course was uneventful. Patient remains in sinus. She has required cardioversion in the past. At the time of discharge patient is stable. LABS: White cell count 6.6, hematocrit 35, platelets 159,000, sodium 140, potassium 4.1, BUN 44, creatinine 1.5, glucose 164. ABG pH is 7.46, pCO2 48, PO2 79 on 36%. Cardiac enzyme negative, proBNP 3000. Discharge weight is 295 pounds. DISCHARGE INSTRUCTIONS: 1. CPAP machine all the time. 2. Fluid restrictions 1.5 L per day. Daily weights. 3. Low-salt diet and Zoloft 100 in the morning, Protonix 40 daily, isosorbide 30 daily, Lipitor 40 daily, Tylenol Arthritis q.8 as needed, potassium 20 mEq daily, Nitrostat as needed, Xanax 0.25 b.i.d., clonidine 0.8 q.8 as needed, Trilogy 1 puff daily, Ventolin HFA as needed, Lasix 40 p.o. b.i.d., Cardizem 240 daily, Multaq 400 p.o. b.i.d., MiraLAX 17 g daily and follow up in my office in 2 weeks. cc: Gregory Pickens MD MTDD
== END 2018-10-19 14:39 | disposition home health service (06) | DRG 292 ==
LOC: SUPCPDRO → ED 17:50 → 3N 21:27 → SUATTDRO 21:27
PROVIDERS: ADMIT Internal Medicine; ATTEND Internal Medicine
CPT/HCPCS: 71020; 71046; 80048; 80053; 82550; 82805; 82948; 83880; 84443; 84484; 85025; 85610; 85730; 93005; 94640; 94761; 96374; 96375; 99285; A9270; C9113; J1650; J1815; J1940; J2920; S0164; XXXXX